=== PATIENT | male | born 1995 | race Caucasian/White ===

== ENCOUNTER 2020-09-22 10:33 | Emergency (ER) | payer OTHER ==
[2020-09-22 11:16] LABS: BILIRUBIN,URINE NEGATIVE (NEGATIVE); CLARITY,URINE CLEAR (CLEAR); GLUCOSE, URINE (UA) NEGATIVE (NEGATIVE); KETONES,URINE (UA) NEGATIVE (NEGATIVE); LEUKOCYTE ESTERASE, URINE NEGATIVE (NEGATIVE); NITRITE,URINE NEGATIVE (NEGATIVE); OCCULT BLOOD,URINE NEGATIVE (NEGATIVE); PROTEIN,URINE NEGATIVE (NEGATIVE); UROBILINOGEN,URINE 0.2 (NORMAL) E.U./dL (NORMAL)
--- NOTE | 2020-09-22 11:55 | ED Physician Documentation ---
PD HPI MALE - Stated complaint Stated Complaint: MALE - Chief complaint Chief Complaint: Abd Pain - History obtained from History obtained from: Patient - Additional information Additional information: Patient comes emergency department complaining of left testicular pain pain since 9:00 this morning after standing up suddenly from the couch. He states that he had been feeling fine and had not had any pain or swelling in his testicle prior to this. He felt a sudden sharp pain and then noticed an ongoing pain in both in his left testicle and his low abdomen. No swelling or bulging. The patient states that he has not had any discharge or dysuria. No blood in his urine. He is otherwise healthy. No history of hernia either in himself or family. No other complaints at this time. Review of Systems Ten Systems: 10 systems reviewed and negative Constitutional: reports: Reviewed and negative Eyes: reports: Reviewed and negative Ears: reports: Reviewed and negative Nose: reports: Reviewed and negative Throat: reports: Reviewed and negative Cardiac: reports: Reviewed and negative Respiratory: reports: Reviewed and negative GI: reports: Reviewed and negative : reports: Testicular pain Skin: reports: Reviewed and negative Musculoskeletal: reports: Reviewed and negative Neurologic: reports: Reviewed and negative Psychiatric: reports: Reviewed and negative Endocrine: reports: Reviewed and negative Immunocompromised: reports: Reviewed and negative PD PAST MEDICAL HISTORY - Past Medical History Past Medical History: No Cardiovascular: None Respiratory: None Neuro: None Endocrine/Autoimmune: None GI: None : None HEENT: None Psych: None Musculoskeletal: None Derm: None - Past Surgical History Past Surgical History: No - Present Medications Home Medications: Ambulatory Orders Medication Instructions Recorded Confirmed Loratadine/Pseudoephedrine 1 each PO DAILY 09/22/20 09/22/20 [Claritin-D 24 Hour Tablet] - Allergies Allergies/Adverse Reactions: Allergies Allergy/AdvReac Type Severity Reaction Status Date / Time No Known Drug Allergies Allergy Verified 09/22/20 10:48 - Social History Does the pt smoke?: No Smoking Status: Never smoker Does the pt drink ETOH?: Yes Does the pt have substance abuse?: No - Immunizations Immunizations are current?: Yes PD ED PE NORMAL - Vitals Vital signs reviewed: Yes - General General: Alert and oriented X 3, No acute distress - HEENT HEENT: Atraumatic, PERRL, EOMI, Moist mucous membranes - Neck Neck: Supple, no meningeal sign - Respiratory Respiratory: No respiratory distress - Abdomen Abdomen: Soft, Non tender, Non distended, Other (No mass) - Male Male : Other (Normal male genitalia; uncircumcised; testicles symmetrical; no scrotal changes; no inguinal mass.) - Derm Derm: Normal color, Warm and dry, No rash - Extremities Extremities: No deformity - Neuro Neuro: Alert and oriented X 3, Other (Grossly normal.) - Psych Psych: Normal mood, Normal affect Results - Vitals Vitals: Vital Signs - 24 hr 09/22/20 09/22/20 09/22/20 10:45 10:58 12:07 Temperature 36.8 C 37.2 C 36.8 C Heart Rate 76 80 77 Respiratory 16 16 18 Rate Blood Pressure 154/91 H 149/92 H 137/90 H O2 Saturation 96 99 98 Oxygen O2 Source Room air - Labs Labs: Laboratory Tests 09/22/20 11:13 Urine Color YELLOW Urine Clarity CLEAR Urine pH 6.0 Ur Specific [place] 1.025 Urine Protein NEGATIVE Urine Glucose (UA) NEGATIVE Urine Ketones NEGATIVE Urine Occult Blood NEGATIVE Urine Nitrite NEGATIVE Urine Bilirubin NEGATIVE Urine Urobilinogen 0.2 (NORMAL) Ur Leukocyte Esterase NEGATIVE Ur Microscopic Review NOT INDICATED Urine Culture Comments NOT INDICATED - Rads (name of study) testicular US Radiology: Final report received, EMP read indepedently, See rad report (Normal blood flow to bilateral testicles no evidence of torsion; normal sonographic appearance of testicles; right epididymal head left epididymal body cyst.) PD MEDICAL DECISION MAKING - ED course Complexity details: considered differential, d/w patient ED course: The patient was worked up with urinalysis, which was unremarkable and an ultrasound of the testicle, which showed dilated veins, but otherwise unremarkable ultrasound. I discussed with the patient that he most likely strained his groin and that this should be self-limited as far as symptoms. He may use ibuprofen and Tylenol as needed and he is encouraged to wear supportive underwear rather than boxer shorts until he is feeling better. Departure - Departure Disposition: 01 Home, Self Care Clinical Impression: Strain of left groin Condition: Stable Instructions: ED Strain Groin Comments: Your ultrasound shows some mild dilation of the veins, which could indicate some inflammation, but otherwise, your anatomy looks good. Most likely, you strained the area when you stood up and that has caused the pain you are having. Please use ibuprofen and/or Tylenol as needed to help with the symptoms. Additionally, wear underwear that is supportive, rather than boxer shorts, until you are feeling better. If you are not feeling any better after a week, please follow- up with your primary care physician. Discharge Date/Time: 09/22/20 12:11
[2020-09-22 12:07] VITALS: BP 137/90
--- NOTE | 2020-09-22 12:11 | Ultrasound Report ---
PROCEDURE: Testicle w/Doppler INDICATIONS: sudden onset pain L testicle TECHNIQUE: Real-time scanning was performed of the scrotum and testicles, with image documentation. Color and p ulse Doppler interrogation was performed of both testicles. COMPARISON: None. FINDINGS: Right: Testicle is normal in size at 3.9 x 2.0 x 3.2 cm, and homogenous in echotexture. Epididymis is normal in overall size and morphology. There is a simple 2.5 x 2.2 x 2.9 cm right epididymal head cyst. No hydrocele or varicoceles. Overlying scrotal skin is normal in thickness. Left: Testicle is normal in size at 4.8 x 1.9 x 2.7 cm, and homogeneous in echotexture. Epididymis is normal in overall size and morphology. There is a simple 0.3 x 0.2 x 0.2 cm left epididymal body c yst. No hydrocele or varicoceles. Overlying scrotal skin is normal in thickness. Doppler: Color and pulse Doppler demonstrate normal and symmetric arterial flow in both testicles. IMPRESSION: 1. Normal blood flow to the bilateral testicles. No findings to suggest testicular torsion at this ti me. 2. Normal sonographic appearance of the bilateral testicles. 3. Right epididymal head, and left epididymal body cyst. Reviewed by: Rita Hamm MD on 09/22/2020 12:10 PM PDT Approved by: Rita Hamm MD on 09/22/2020 12:10 PM PDT Station ID: [id number]
== END 2020-09-22 12:11 | disposition home or self-care (01) ==
LOC: ED 10:33
DX: S39.011A Strain of muscle, fascia and tendon of abdomen, initial encounter (principal); X50.1XXA Overexertion from prolonged static or awkward postures, initial encounter
CPT/HCPCS: 76870; 80053; 81001; 81003; 83690; 85025; 87086; 93975; 99284

== ENCOUNTER 2021-10-17 12:37 | Emergency (ER) | payer OTHER ==
[2021-10-17 12:47] VITALS: BP 145/120
[2021-10-17] MEDS ORDERED: CHERRY SYRUP 10 ML UDC PO ONE (13:13)
[2021-10-17] MEDS ORDERED: KETOROLAC 60 MG/2 ML VIAL IM STA (13:13)
[2021-10-17] MEDS ORDERED: DEXAMETHASONE 10 MG/ML VIAL PO STA (13:13)
--- NOTE | 2021-10-17 13:13 | ED Physician Documentation ---
PD HPI BACK PAIN - Stated complaint Stated Complaint: LOWER BACK PAIN - Chief complaint Chief Complaint: Back Pain - History obtained from History obtained from: Patient - History of Present Illness Timing - onset: Enter time (1899), Last night Timing - duration: Hours Timing - details: Abrupt onset, Still present Location: Lower, Right Quality: Pain, Spasm, Sharp Associated symptoms: No: Fever, Weakness, Numbness, Incontinent of urine, Unable to urinate, Hematuria, Incontinent of stool Improves with: No: Rest Worsened by: Movement, Lifting, Twisting, Palpation Contributing factors: Other (was pulling a heavy comforter out of the washing machine when he felt a "click" in his back and had sudden pain and severe pain with movment. Pain radiated down the right leg last night. Not able to sleep.) Similar symptoms before: Has not had sx before Recently seen: Not recently seen Review of Systems Constitutional: denies: Fever Eyes: denies: Decreased vision Ears: denies: Ear pain Nose: denies: Congestion Throat: denies: Sore throat Respiratory: denies: Cough GI: denies: Abdominal Pain, Nausea, Vomiting : denies: Dysuria, Frequency Skin: denies: Rash Musculoskeletal: reports: Back pain. denies: Neck pain, Extremity pain Neurologic: denies: Generalized weakness, Focal weakness, Numbness PD PAST MEDICAL HISTORY - Past Medical History Cardiovascular: None Respiratory: None Neuro: None Endocrine/Autoimmune: None GI: None : None HEENT: None Psych: None Musculoskeletal: None Derm: None - Past Surgical History Past Surgical History: No - Present Medications Home Medications: Ambulatory Orders Medication Instructions Recorded Confirmed Loratadine/Pseudoephedrine 1 each PO DAILY 09/22/20 09/22/20 [Claritin-D 24 Hour Tablet] Cyclobenzaprine [Flexeril] 10 mg PO TID PRN #20 tablet 10/17/21 HYDROcod/ACETAM 5/325 [[place] 5/325] 1 - 2 tablet PO Q6H PRN #14 tablet 10/17/21 - Allergies Allergies/Adverse Reactions: Allergies Allergy/AdvReac Type Severity Reaction Status Date / Time No Known Drug Allergies Allergy Verified 10/17/21 12:47 - Social History Does the pt smoke?: No Smoking Status: Never smoker Does the pt drink ETOH?: Yes Does the pt have substance abuse?: No - Immunizations Immunizations are current?: Yes PD ED PE NORMAL - Vitals Vital signs reviewed: Yes (hypertensive ) - General General: Alert and oriented X 3, No acute distress, Well developed/nourished - HEENT HEENT: Atraumatic, PERRL, EOMI - Respiratory Respiratory: No respiratory distress - Back Back: No CVA TTP, No spinal TTP, Other (right paraspinous muscle tenderness at the L3/4 level extending to the sciatic notch. ) - Derm Derm: Normal color, Warm and dry, No rash - Extremities Extremities: No deformity, No edema - Neuro Neuro: Alert and oriented X 3, vp human resources 2-12 intact, No motor deficit, No sensory deficit, Normal speech Eye Opening: Spontaneous Motor: Obeys Commands Verbal: Oriented GCS Score: 15 - Psych Psych: Normal mood, Normal affect Results - Vitals Vitals: Vital Signs - 24 hr 10/17/21 12:45 Temperature 36.3 C L Heart Rate 96 Respiratory 18 Rate Blood Pressure 145/120 H O2 Saturation 95 Oxygen O2 Source Room air PD MEDICAL DECISION MAKING - ED course Complexity details: reviewed old records, reviewed results, re-evaluated patient, considered differential, d/w patient ED course: 26-year-old male with a strain to his back as an acute sciatica. Is quite uncomfortable was unable to sleep last night here in the emergency department today is administered dexamethasone and Toradol. We will put him on a short course of pain medication a muscle relaxant and off work. Departure - Departure Disposition: 01 Home, Self Care Clinical Impression: Acute lumbar myofascial strain Instructions: ED Sprain Strain Lumbar Follow-Up: DANITZA Sanchez [Provider Group] Prescriptions: Cyclobenzaprine [Flexeril] 10 mg PO TID PRN #20 tablet PRN Reason: Spasms HYDROcod/ACETAM 5/325 [[place] 5/325] 1 - 2 tablet PO Q6H PRN #14 tablet PRN Reason: Pain Forms: Activity restrictions
== END 2021-10-17 13:45 | disposition home or self-care (01) ==
LOC: ED 12:37
DX: S39.012A Strain of muscle, fascia and tendon of lower back, initial encounter (principal); X58.XXXA Exposure to other specified factors, initial encounter
CPT/HCPCS: 96372; 99283; 99284; A9270